=== PATIENT | male | born 2000 | race Caucasian/White ===

== ENCOUNTER → 2018-06-08 16:40 | Outpatient (CLI) | payer OTHER, MEDICAID, SELFPAY ==
[2018-06-08 17:44] LABS: Add Manual Diff / Slide Review NO; Eosinophils Percent Auto 2.7 % (2-4); Hematocrit 48.2 % (41-53); Hemoglobin 16.5 g/dL (13.5-17.5); Lymphocytes Percent Auto 29.4 % (25-40); Mean Corpuscular HGB Conc 34.2 % (30-36); Mean Corpuscular Hemoglobin 31.5 PG (26-34); Mean Corpuscular Volume 92.2 fL (80-100); Monocytes Percent Auto 8.9 % (3-14); Neutrophils Absolute Auto 4800 /uL (3000-5900); Platelet Count 289 X10^3/uL (150-400); Red Blood Cell Count 5.23 X10^6/uL (4.5-5.9); Red Cell Distribution Width 13.3 % (11.6-14.8); White Blood Cell Count 8.3 X10^3/uL (4.5-11.0)
[2018-06-08 18:40] LABS: Alanine Aminotransferase 35 IU/L (21-72); Albumin 4.6 g/dL (3.5-5.0); Albumin Globulin Ratio 1.5 (1.0-2.8); Alkaline Phosphatase 61 U/L (38-126); Aspartate Aminotransferase 26 IU/L (17-59); BUN Creatinine Ratio 16.7 (6-22); Bilirubin Total 0.5 mg/dL (0.2-1.3); Blood Urea Nitrogen 10 mg/dL (9-20); Calcium 9.7 mg/dL (8.4-10.2); Carbon Dioxide 25 mmol/L (22-32); Chloride 102 mmol/L (98-107); Estimated Glomerular Filt Rate > 60.0 mL/min (>60); Globulin 3.1 g/dL (1.7-4.1); Glucose 84 mg/dL (70-100); HEMOLYSIS 16 (0-50); Potassium 4.6 mmol/L (3.4-5.1); Sodium 141 mmol/L (137-145); Total Protein 7.7 g/dL (6.3-8.2)
[2018-06-08 19:10] LABS: TSH w/ Reflex to FT4 1.45 uIU/mL (0.47-4.68)
== END ==
PROVIDERS: PCP Family Medicine; Visit Provider Family Medicine
DX: L65.9 Nonscarring hair loss, unspecified (principal)
CPT/HCPCS: 36415; 80053; 84443; 85025

== ENCOUNTER 2018-08-26 06:51 | Emergency (ER) | payer OTHER, MEDICAID, SELFPAY ==
[2018-08-26 06:58] VITALS: BP 158/93; PULSE 106; RESP 16; TEMP 36.2; O2SAT 98; BMI 21.1
[2018-08-26 07:00] VITALS: BP 133/82; PULSE 99; RESP 12; O2SAT 98
--- NOTE | 2018-08-26 07:05 | ED_ITS ---
HPI - Chest Pain General Chief Complaint: Chest Pain Stated Complaint: sob chest pain Time Seen by Provider: 08/26/18 07:00 Source: patient Mode of arrival: ambulatory Limitations: no limitations History of Present Illness HPI narrative: Otherwise healthy 18-year-old male here for evaluation of chest pain. Patient states that it started approximately 11 o'clock last night and has continued since then. He states that he has had constant pain. States the center of his chest. Not worse with palpation or movement or deep breaths. He has never had anything like this before. Has not tried anything prior to this. He states that he was at a concert last night where there was a lot of smoke and he did smoke which he normally does not do. States that he did have a 2 [address] ride yesterday to the concert. No history of blood clots. No lower extremity swelling. Related Data Previous Rx's Medication Instructions Recorded finasteride 1 mg tablet 1 mg PO DAILY #30 tab 03/09/18 mupirocin 2 % topical ointment 1 applictn TOP TID #22 gram 03/09/18 Allergies Allergy/AdvReac Type Severity Reaction Status Date / Time amoxicillin [From Augmentin] AdvReac Mild UPSET Verified 06/08/18 16:07 STOMACH clavulanic acid AdvReac Mild UPSET Verified 06/08/18 16:07 [From Augmentin] STOMACH Review of Systems Constitutional Denies fatigue, Denies fever(s) and Denies headache(s) ENT Ears, Nose, Mouth, and Throat: Denies headache(s) Cardiovascular Reports chest pain, Denies rapid heart rate, Denies edema, Denies palpitations and Denies dyspnea Respiratory Reports cough and Denies dyspnea Gastrointestinal Gastrointestinal: Denies abdominal pain, Denies nausea and Denies vomiting Integumentary/Breasts Denies lesions and Denies rash Neurologic Denies headache(s) Endocrine Denies fatigue and Denies palpitations Hematologic/Lymphatic Denies easy bleeding and Denies easy bruising [facility] Medical History Anxiety (Chronic 2010) Recurrent sinusitis (Chronic Unknown) Fecal incontinence (Resolved 2014) History of hand fracture (Resolved 09/2015) Surgical History History of tonsillectomy (2013) Family History Father Age: 52 GERD (gastroesophageal reflux disease) Sister Age: 18 Epilepsy Mother Cancer ADHD (attention deficit hyperactivity disorder) Social History Smoking Status: Current every day smoker Exam Initial Vital Signs Initial Vital Signs: Vital Signs Temperature 97.2 F L 08/26/18 06:58 Pulse Rate 106 H 08/26/18 06:58 Respiratory Rate 16 08/26/18 06:58 Blood Pressure 158/93 H 08/26/18 06:58 Pulse Oximetry 98 08/26/18 06:58 Const General: cooperative, healthy appearing, comfortable, well developed and well groomed Orientation: alert, awake and oriented x3 HENMT Head: normal to inspection and normocephalic Resp Effort & Inspection: normal respiratory effort Auscultation: clear to auscultation bilaterally Cardio Rate: regular rate Rhythm: regular rhythm Heart Sounds: no murmurs Pulses: radial pulses present GI Inspection: non-distended Palpation: soft, No firm and No tender Skin Lesions: no lesions Rashes: no rashes Neuro General: alert, awake and oriented x3 Extrem General: normal to inspection and capillary refill normal Psych Appearance: grossly normal and well kempt Course Orders Ordered: ED Orders 08/26/18 06:57 EKG-12 Lead Stat 08/26/18 07:00 Complete Blood Count AUTO DIFF Stat Comprehensive Metabolic Panel Stat D Dimer Stat Lipase Stat 08/26/18 07:14 XR chest 1V Stat 08/26/18 07:20 Troponin I Stat Vital Signs - 8 hr 08/26/18 06:58 08/26/18 08:00 Temperature 97.2 F L Pulse Rate 106 H 94 H Respiratory Rate 16 14 Blood Pressure 158/93 H Blood Pressure [Left Arm] 135/87 Pulse Oximetry 98 96 MDM - Chest Pain Lab Data Attestation: I reviewed the patient's lab results. Result diagrams: 08/26/18 07:00 08/26/18 07:00 Lab Results 08/26/18 08/26/18 08/26/18 Range/Units 07:00 07:00 07:00 WBC 14.1 H (4.5-11.0) X10^3/uL RBC 5.12 (4.5-5.9) X10^6/uL Hgb 15.9 (13.5-17.5) g/dL Hct 45.5 (41-53) % MCV 88.7 (80-100) fL MCH 31.1 (26-34) PG MCHC 35.0 (30-36) % RDW 13.6 (11.6-14.8) % Plt Count 271 (150-400) X10^3/uL Neut % (Auto) 68.6 (50-75) % Lymph % (Auto) 18.8 L (25-40) % Coleman % (Auto) 10.7 (3-14) % Eos % (Auto) 1.5 L (2-4) % Baso % (Auto) 0.4 (0-2) % Neut # (Auto) 9700 H (5873-9739) /uL D-Dimer < 200 (<230) ng/mL Sodium 142 (137-145) mmol/L Potassium 3.3 L (3.4-5.1) mmol/L Chloride 102 (98-107) mmol/L Carbon Dioxide 25 (22-32) mmol/L BUN 7 L (9-20) mg/dL Creatinine 0.60 L (0.66-1.25) mg/dL Estimated GFR > 60.0 (>60) mL/min BUN/Creatinine Ratio 11.7 (6-22) Glucose 104 H (70-100) mg/dL Calcium 9.7 (8.4-10.2) mg/dL Total Bilirubin 1.1 (0.2-1.3) mg/dL AST 39 (17-59) IU/L ALT 60 (21-72) IU/L Alkaline Phosphatase 80 (38-126) U/L Troponin I (0.01-0.034) ng/mL Total Protein 8.2 (6.3-8.2) g/dL Albumin 4.9 (3.5-5.0) g/dL Globulin 3.3 (1.7-4.1) g/dL Albumin/Globulin Ratio 1.5 (1.0-2.8) Lipase 63 (23-300) U/L 08/26/18 Range/Units 07:20 WBC (4.5-11.0) X10^3/uL RBC (4.5-5.9) X10^6/uL Hgb (13.5-17.5) g/dL Hct (41-53) % MCV (80-100) fL MCH (26-34) PG MCHC (30-36) % RDW (11.6-14.8) % Plt Count (150-400) X10^3/uL Neut % (Auto) (50-75) % Lymph % (Auto) (25-40) % Coleman % (Auto) (3-14) % Eos % (Auto) (2-4) % Baso % (Auto) (0-2) % Neut # (Auto) (5355-1680) /uL D-Dimer (<230) ng/mL Sodium (137-145) mmol/L Potassium (3.4-5.1) mmol/L Chloride (98-107) mmol/L Carbon Dioxide (22-32) mmol/L BUN (9-20) mg/dL Creatinine (0.66-1.25) mg/dL Estimated GFR (>60) mL/min BUN/Creatinine Ratio (6-22) Glucose (70-100) mg/dL Calcium (8.4-10.2) mg/dL Total Bilirubin (0.2-1.3) mg/dL AST (17-59) IU/L ALT (21-72) IU/L Alkaline Phosphatase (38-126) U/L Troponin I < 0.012 (0.01-0.034) ng/mL Total Protein (6.3-8.2) g/dL Albumin (3.5-5.0) g/dL Globulin (1.7-4.1) g/dL Albumin/Globulin Ratio (1.0-2.8) Lipase (23-300) U/L Imaging Data Chest x-ray: Attestation: I personally reviewed and interpreted this imaging study as follows: My impression: No focal consolidations No pneumothorax Normal size heart Radiologist's impression: PROCEDURE: XR CHEST 1V INDICATIONS: chest pain TECHNIQUE: One view of the chest was acquired. COMPARISON: None. FINDINGS: Surgical changes and devices: None. Lungs and pleura: No pleural effusions or pneumothorax. Lungs are clear. Mediastinum: Mediastinal contours appear normal. Heart size is normal. Bones and chest wall: No suspicious bony lesions. Overlying soft tissues appear unremarkable. IMPRESSION: No acute pulmonary process. Dictated by: Lexi Perez, M.D. on 08/26/2018 at 7:59 Approved by: Lexi Perez M.D. on 08/26/2018 at 8:00 ECG Data Attestation: I personally reviewed and interpreted this ECG as follows: Prior ECG tracings: not available for review Interpretation: Sinus rhythm Ventricular rate of 1 0 weight Normal axis Normal QRS Normal QTC Early repolarization MDM Narrative Medical decision making narrative: Early refill in the EKG. D-dimer is negative. Chest x-ray shows no signs of infection. Does have an elevated white blood cell count however no signs of infection were found on the workup today. I suspect that his symptoms are secondary to his smoke exposure over the past 24 hr at the concert. He was feeling much better while being here in the ER. We also discussed that this could potentially be a GI etiology. He is going to start on Zantac for the next several days. He was given return precautions. Both he and his mother was at bedside expressed understanding and agreement with plan. Discharge Plan Departure Patient Disposition: Home Clinical Impression: Chest pain Instructions: DI for Atypical Chest Pain Activity Restrictions/Additional Instructions: I would recommend that you start on a anti reflux medications such as Zantac for the next couple days. Call your primary care doctor for a follow-up. I highly encouraged you to stop smoking as I suspect that the symptoms you had today are related to that. Return to the emergency department for any new or worsening symptoms Prescriptions: No Action mupirocin 2 % ointment 1 applictn TOP TID Qty: 22 RF: 0 finasteride 1 mg tablet 1 mg PO DAILY Qty: 30 RF: 2
--- NOTE | 2018-08-26 07:14 | DI.RAD.S_ITS ---
PROCEDURE: XR CHEST 1V INDICATIONS: chest pain TECHNIQUE: One view of the chest was acquired. COMPARISON: None. FINDINGS: Surgical changes and devices: None. Lungs and pleura: No pleural effusions or pneumothorax. Lungs are clear. Mediastinum: Mediastinal contours appear normal. Heart size is normal. Bones and chest wall: No suspicious bony lesions. Overlying soft tissues appear unremarkable. IMPRESSION: No acute pulmonary process. Dictated by: Lexi Perez M.D. on 08/26/2018 at 7:59 Approved by: Lexi Perez M.D. on 08/26/2018 at 8:00
[2018-08-26 07:22] LABS: Add Manual Diff / Slide Review NO; Basophils Percent Auto 0.4 % (0-2); Eosinophils Percent Auto 1.5 % (2-4); Hematocrit 45.5 % (41-53); Hemoglobin 15.9 g/dL (13.5-17.5); Lymphocytes Percent Auto 18.8 % (25-40); Mean Corpuscular Hemoglobin 31.1 PG (26-34); Mean Corpuscular Volume 88.7 fL (80-100); Monocytes Percent Auto 10.7 % (3-14); Neutrophils Absolute Auto 9700 /uL (3000-5900); Neutrophils Percent Auto 68.6 % (50-75); Platelet Count 271 X10^3/uL (150-400); Red Blood Cell Count 5.12 X10^6/uL (4.5-5.9); Red Cell Distribution Width 13.6 % (11.6-14.8); White Blood Cell Count 14.1 X10^3/uL (4.5-11.0)
[2018-08-26 07:26] LABS: D Dimer < 200 ng/mL (<230)
[2018-08-26 07:33] LABS: Alanine Aminotransferase 60 IU/L (21-72); Albumin 4.9 g/dL (3.5-5.0); Albumin Globulin Ratio 1.5 (1.0-2.8); Alkaline Phosphatase 80 U/L (38-126); Aspartate Aminotransferase 39 IU/L (17-59); BUN Creatinine Ratio 11.7 (6-22); Bilirubin Total 1.1 mg/dL (0.2-1.3); Blood Urea Nitrogen 7 mg/dL (9-20); Calcium 9.7 mg/dL (8.4-10.2); Carbon Dioxide 25 mmol/L (22-32); Chloride 102 mmol/L (98-107); Estimated Glomerular Filt Rate > 60.0 mL/min (>60); Globulin 3.3 g/dL (1.7-4.1); Glucose 104 mg/dL (70-100); HEMOLYSIS 21 (0-50); Lipase 63 U/L (23-300); Potassium 3.3 mmol/L (3.4-5.1); Sodium 142 mmol/L (137-145); Total Protein 8.2 g/dL (6.3-8.2)
[2018-08-26 07:49] LABS: Troponin I < 0.012 ng/mL (0.01-0.034)
[2018-08-26 08:00] VITALS: BP 135/87; PULSE 94; RESP 14; O2SAT 96
--- NOTE | 2018-08-26 08:01 | PC.NURSE ---
pt reports, going to concert last night, developed substernal chest discomfort for 6 hours, with shortness of breath and denies nausea or vomiting, also with shoulder pain. had a cold for 2 days, also smoker, reports coughing green sputum, denies fever at home. mother at bs. waiting for pending labs.
== END 2018-08-26 08:54 | disposition home or self-care (01) ==
PROVIDERS: Emergency Provider Emergency Medicine; PCP Family Medicine
DX: R07.89 Other chest pain (principal)
CPT/HCPCS: 71045; 80053; 83690; 84484; 85025; 85379; 93005; 93010; 99283; 99285

== ENCOUNTER 2018-08-27 11:03 | Emergency (ER) | payer OTHER, MEDICAID, SELFPAY ==
--- NOTE | 2018-08-27 11:05 | ED_ITS ---
HPI - Chest Pain General Chief Complaint: Chest Pain Stated Complaint: CHEST PAINS Time Seen by Provider: 08/27/18 11:04 Source: patient Mode of arrival: ambulatory Limitations: no limitations History of Present Illness HPI narrative: Patient is a 18-year-old male who I evaluated the emergency department yesterday for chest pain. Patient did have an elevated white blood cell count at that time but other signs of infection. His EKG was unremarkable. Troponin was unremarkable. D-dimer was negative. I felt at that time that his chest pain was secondary to the smoke exposure that he had had over the past 24 hr while at a concert. Patient states he was discharged home and felt much better throughout the day. He states that last evening the chest pain came back and then got worse this morning and it is now in his back. He states that it is the worst upper back pain that he has ever had. No fevers. Has not passed out. No headache. No vision changes. He states that he still has the pain in the front portion of his chest that he had yesterday and that is the same pain. Related Data Previous Rx's Medication Instructions Recorded finasteride 1 mg tablet 1 mg PO DAILY #30 tab 03/09/18 mupirocin 2 % topical ointment 1 applictn TOP TID #22 gram 03/09/18 Allergies Allergy/AdvReac Type Severity Reaction Status Date / Time amoxicillin [From Augmentin] AdvReac Mild UPSET Verified 08/27/18 11:45 STOMACH clavulanic acid AdvReac Mild UPSET Verified 08/27/18 11:45 [From Augmentin] STOMACH Review of Systems Constitutional Denies fever(s) and Denies headache(s) ENT Ears, Nose, Mouth, and Throat: Denies dizziness and Denies headache(s) Cardiovascular Reports chest pain, Denies diaphoresis, Denies syncope, Denies edema and Denies dyspnea Respiratory Denies cough and Denies dyspnea Gastrointestinal Gastrointestinal: Denies abdominal pain, Denies nausea and Denies vomiting Musculoskeletal Reports back pain (Upper back pain), Denies myalgias and Denies arthralgias Integumentary/Breasts Denies lesions and Denies rash Neurologic Denies dizziness, Denies syncope and Denies headache(s) Hematologic/Lymphatic Denies easy bleeding and Denies easy bruising [facility] Medical History Anxiety (Chronic 2010) Recurrent sinusitis (Chronic Unknown) Fecal incontinence (Resolved 2014) History of hand fracture (Resolved 09/2015) Surgical History History of tonsillectomy (2013) Family History Father Age: 52 GERD (gastroesophageal reflux disease) Sister Age: 18 Epilepsy Mother Cancer ADHD (attention deficit hyperactivity disorder) Social History Smoking Status: Current every day smoker Exam Initial Vital Signs Initial Vital Signs: Vital Signs Temperature 97.7 F 08/27/18 11:12 Pulse Rate 84 08/27/18 11:12 Respiratory Rate 15 08/27/18 11:12 Blood Pressure 138/86 08/27/18 11:12 Pulse Oximetry 100 08/27/18 11:12 Const General: well developed, well groomed, in distress, No diaphoretic and ill appearing Orientation: alert, awake and oriented x3 HENMT Head: normal to inspection and normocephalic Chest Chest: normal inspection of the chest, normal palpation of entire chest wall and No crepitus Resp Effort & Inspection: normal respiratory effort Auscultation: clear to auscultation bilaterally Cardio Rate: regular rate Rhythm: regular rhythm Heart Sounds: no murmurs Pulses: radial pulses present GI Inspection: normal to inspection and non-distended Back/Spine/Pelvis Back: No CVA tenderness Skin Lesions: no lesions Rashes: no rashes Neuro General: alert, awake and oriented x3 Extrem General: normal to inspection and No edema Psych Appearance: grossly normal and well kempt Course Orders Ordered: ED Orders 08/27/18 11:06 EKG-12 Lead Stat 08/27/18 11:18 CT angio chest abdomen pelvis Stat 08/27/18 11:25 B Type Natriuretic Peptide Stat Complete Blood Count AUTO DIFF Stat Troponin I Stat Sodium Chloride (Normal Saline 0.9%) 1,000 mls @ 1,000 mls/hr IV BOLUS ONE Stop: 08/27/18 12:06 Discontinued Medications Al Hydrox/Mg Hydrox/Simethicone 20 ml/ Lidocaine HCl 15 ml 0 ml PO NOW ONE Stop: 08/27/18 11:13 Vital Signs - 8 hr 08/27/18 11:12 Temperature 97.7 F Pulse Rate 84 Respiratory Rate 15 Blood Pressure 138/86 Pulse Oximetry 100 MDM - Chest Pain Lab Data Result diagrams: 08/27/18 11:25 Lab Results 08/27/18 Range/Units 11:25 WBC 10.7 (4.5-11.0) X10^3/uL RBC 4.86 (4.5-5.9) X10^6/uL Hgb 15.1 (13.5-17.5) g/dL Hct 43.4 (41-53) % MCV 89.3 (80-100) fL MCH 31.1 (26-34) PG MCHC 34.8 (30-36) % RDW 13.5 (11.6-14.8) % Plt Count 251 (150-400) X10^3/uL Neut % (Auto) 60.2 (50-75) % Lymph % (Auto) 25.2 (25-40) % Saline % (Auto) 11.5 (3-14) % Eos % (Auto) 2.6 (2-4) % Baso % (Auto) 0.5 (0-2) % Neut # (Auto) 6500 H (7858-0973) /uL Imaging Data CT scan dissection : Radiologist's impression: [place] [address] CT Scan Report Signed Patient: Oral Eid RMR#: [id number] : 2000Acct:[id number] Age/Sex: 18 / MDate of Service: 08/27/18 Loc: ED Accession Number: [id number] Procedure: CT angio chest abdomen pelvis Ordering Provider: Vincenzo Perez D.O. PROCEDURE: CT ANGIO CHEST ABDOMEN PELVIS INDICATIONS: TAD TECHNIQUE: Precontrast 5 mm thick sections acquired from the lung apices to the iliac crests. After the administration of intravenous contrast, 2.5 mm thick sections again acquired from the lung apices to the iliac crests. Maximum intensity projection (MIP) oblique sagittal and coronal reformats were then acquired. For radiation dose reduction, the following was used: automated exposure control. COMPARISON: None. FINDINGS: Image quality: Excellent. AORTA: The aorta demonstrates normal course and caliber throughout. No mural thrombus. No atheromatous plaque or calcifications. No aneurysmal dilatation. No stenosis. No annuloaortic ectasia. CHEST: Lungs and pleura: No acute airspace opacities. No pleural effusions or pneumothorax. Central and peripheral airways are patent and normal in caliber. Mediastinum: Heart size is normal. No pericardial effusion. No mediastinal or hilar adenopathy by size criteria. Central pulmonary arteries are normal in size. Esophagus is normal in caliber. No hiatal hernias. Bones and chest wall: No axillary adenopathy by size criteria. Thyroid gland is unremarkable. No suspicious bony lesions. No vertebral body compression fractures. ABDOMEN: Vasculature: Celiac trunk and mesenteric arteries are patent. Renal arteries are also patent. Solid organs: Liver is is diffusely hypodense suggesting fatty infiltration. Gallbladder is unremarkable. Biliary system is non dilated. Pancreas enhances normally. Spleen is normal in size and enhancement. No adrenal nodules. Both kidneys are normal in size and enhancement, without hydronephrosis. Peritoneum and bowel: No free fluid or air. Bowel loops are normal in caliber and wall thickness. The appendix is thin walled and gas filled. Nodes and vessels: No retroperitoneal or mesenteric adenopathy by size criteria. Inferior vena cava is normal in morphology. Miscellaneous: No ventral hernias. PELVIS: Genitourinary: Bladder wall thickness is normal. Miscellaneous: No inguinal hernias or adenopathy. No ventral hernias. Bones: No suspicious bony lesions. No vertebral body compression fractures. IMPRESSION: 1. Normal appearance of the thoracoabdominal aorta. 2. No findings to explain patient's symptoms. 3. Normal appendix. Dictated by: Sonia Salas M.D. on 08/27/2018 at 11:43 Approved by: Sonia Salas M.D. on 08/27/2018 at 11:47 ECG Data Attestation: I personally reviewed and interpreted this ECG as follows: Prior ECG tracings: available for review Interpretation: Sinus rhythm Ventricular rate of 91 ST elevations in lead 2-3 AVF V4 V5 V6. Normal QRS Normal QTC Comparison EKG dated 08/26/[address] elevations in 2 3 AVF V4 V5 V6 on this EKG MDM Narrative Medical decision making narrative: Patient arrived looking much more uncomfortable today than yesterday. He did report that he did drink last evening however that was 11 hr ago. He states that he took 1 drag off of a cigarette since his visit here yesterday. He denies any drug use currently. He states that he has used cocaine in the past but that was many months ago. The back pain today is new. He states that is the worse back pain that he has ever had. He has changes in his EKG today compared to yesterday. He has ST elevations in 2 3 and AVF and also laterally which were not there yesterday. Yesterday's EKG I read as early repolarization. Patient is not hypotensive. I feel given his symptoms, his clinical presentation, the new ST-T changes that ST elevation OR is a possibility. I discussed the case with Dr. Persaud at [facility] who accepts the patient in transfer. EKGs were faxed over. This could also be pericarditis however I feel that he does not have diffuse ST elevation. The CT scan was negative for dissection. Will transfer the patient to [facility]. He was given an aspirin by the paramedics while he was here in the emergency department. After discussion with the accepting provider will hold on aspirin for now. Transfer was discussed with the family they expressed understanding and agreement. Discharge Plan Departure Patient Disposition: [facility] Clinical Impression: Anxiety, ST elevation Prescriptions: No Action mupirocin 2 % ointment 1 applictn TOP TID Qty: 22 RF: 0 finasteride 1 mg tablet 1 mg PO DAILY Qty: 30 RF: 2 Referrals: Fernando Leung MD [Primary Care Provider] -
[2018-08-27 11:12] VITALS: BP 138/86; PULSE 84; RESP 15; TEMP 36.5; O2SAT 100; BMI 21.1
--- NOTE | 2018-08-27 11:18 | DI.CT.S_ITS ---
PROCEDURE: CT ANGIO CHEST ABDOMEN PELVIS INDICATIONS: TAD TECHNIQUE: Precontrast 5 mm thick sections acquired from the lung apices to the iliac crests. After the administration of intravenous contrast, 2.5 mm thick sections again acquired from the lung apices to the iliac crests. Maximum intensity projection (MIP) oblique sagittal and coronal reformats were then acquired. For radiation dose reduction, the following was used: automated exposure control. COMPARISON: None. FINDINGS: Image quality: Excellent. AORTA: The aorta demonstrates normal course and caliber throughout. No mural thrombus. No atheromatous plaque or calcifications. No aneurysmal dilatation. No stenosis. No annuloaortic ectasia. CHEST: Lungs and pleura: No acute airspace opacities. No pleural effusions or pneumothorax. Central and peripheral airways are patent and normal in caliber. Mediastinum: Heart size is normal. No pericardial effusion. No mediastinal or hilar adenopathy by size criteria. Central pulmonary arteries are normal in size. Esophagus is normal in caliber. No hiatal hernias. Bones and chest wall: No axillary adenopathy by size criteria. Thyroid gland is unremarkable. No suspicious bony lesions. No vertebral body compression fractures. ABDOMEN: Vasculature: Celiac trunk and mesenteric arteries are patent. Renal arteries are also patent. Solid organs: Liver is is diffusely hypodense suggesting fatty infiltration. Gallbladder is unremarkable. Biliary system is non dilated. Pancreas enhances normally. Spleen is normal in size and enhancement. No adrenal nodules. Both kidneys are normal in size and enhancement, without hydronephrosis. Peritoneum and bowel: No free fluid or air. Bowel loops are normal in caliber and wall thickness. The appendix is thin walled and gas filled. Nodes and vessels: No retroperitoneal or mesenteric adenopathy by size criteria. Inferior vena cava is normal in morphology. Miscellaneous: No ventral hernias. PELVIS: Genitourinary: Bladder wall thickness is normal. Miscellaneous: No inguinal hernias or adenopathy. No ventral hernias. Bones: No suspicious bony lesions. No vertebral body compression fractures. IMPRESSION: 1. Normal appearance of the thoracoabdominal aorta. 2. No findings to explain patient's symptoms. 3. Normal appendix. Dictated by: Sonia Salas M.D. on 08/27/2018 at 11:43 Approved by: Sonia Salas M.D. on 08/27/2018 at 11:47
[2018-08-27 11:38] LABS: Add Manual Diff / Slide Review NO; Basophils Percent Auto 0.5 % (0-2); Eosinophils Percent Auto 2.6 % (2-4); Hematocrit 43.4 % (41-53); Hemoglobin 15.1 g/dL (13.5-17.5); Lymphocytes Percent Auto 25.2 % (25-40); Mean Corpuscular HGB Conc 34.8 % (30-36); Mean Corpuscular Hemoglobin 31.1 PG (26-34); Mean Corpuscular Volume 89.3 fL (80-100); Monocytes Percent Auto 11.5 % (3-14); Neutrophils Absolute Auto 6500 /uL (3000-5900); Neutrophils Percent Auto 60.2 % (50-75); Platelet Count 251 X10^3/uL (150-400); Red Blood Cell Count 4.86 X10^6/uL (4.5-5.9); Red Cell Distribution Width 13.5 % (11.6-14.8); White Blood Cell Count 10.7 X10^3/uL (4.5-11.0)
[2018-08-27 11:55] VITALS: BP 122/86; PULSE 86; RESP 21; O2SAT 100
[2018-08-27] MEDS: SODIUM CHLORIDE 0.9% 1,000 ML 1000 ML IV (11:55)
--- NOTE | 2018-08-27 12:03 | PC.NURSE ---
fluid continued by medics upon transfer
== END 2018-08-27 11:55 | disposition short-term general hospital (02) ==
PROVIDERS: Emergency Provider Emergency Medicine; PCP Family Medicine
DX: F41.9 Anxiety disorder, unspecified (principal); R94.31 Abnormal electrocardiogram [ECG] [EKG]; R07.89 Other chest pain
CPT/HCPCS: 36591; 71275; 74174; 83880; 84484; 85025; 93005; 93010; 99283; 99291

== ENCOUNTER → 2019-01-17 08:27 | Outpatient (CLI) | payer OTHER, MEDICAID, SELFPAY ==
--- NOTE | 2019-01-17 09:26 | PM.TREADMILL ---
Cardiac Stress Test Report Referral & Results Date Patient Seen: 01/17/19 Requesting provider: Ailyn Anthony Indication: Chest pain Rest ECG: Unremarkable Procedure Note: Today following both written and verbal informed consent, the patient was exercised according to a standard Jason protocol. The patient exercised for a total of 9 min 18 sec achieving a maximum heart rate of 191. Patient's maximum systolic blood pressure was 178. This was an estimated 10.1 MET's. There are no ST-T segment changes Normal heart rate and blood pressure response to exercise Functional aerobic impairment rated about 28% on the sedentary scale Impression: No evidence of ischemia Somewhat limited exercise capacity Clinical correlation suggested Please note: Actual ECG tracings can be found in the PACS system.
== END ==
PROVIDERS: PCP Family Medicine; Visit Provider Family Medicine
DX: R07.9 Chest pain, unspecified (principal)
CPT/HCPCS: 93016; 93017; 93018

== ENCOUNTER → 2020-08-29 13:57 | Outpatient (CLI) | payer OTHER, MEDICAID, SELFPAY ==
[2020-08-30 19:21] LABS: COVID19 Sendout Not Detected (Not Detect)
== END ==
PROVIDERS: PCP Family Medicine; Visit Provider Physician Assistant
DX: Z11.59 Encounter for screening for other viral diseases (principal); J02.9 Acute pharyngitis, unspecified
CPT/HCPCS: 87070; 87077; 87147; 87635

== ENCOUNTER → 2020-11-22 11:57 | Outpatient (CLI) | payer OTHER, MEDICAID, SELFPAY ==
--- NOTE | 2020-11-22 11:59 | DI.RAD.S_ITS ---
PROCEDURE: XR HAND LT MIN 3V INDICATIONS: fall, pain to wrist/elbow/forearm TECHNIQUE: 3 views of the hand(s) acquired. COMPARISON: [facility], CR, XR WRIST LT MIN 3V, 11/22/2020, 12:01. [facility], CR, XR FOREARM LT 2V, 11/22/2020, 12:01. [facility], CR, XR HUMERUS LT 2V, 11/22/2020, 12:01. [facility], CR, XR ELBOW LT MIN 3V, 11/22/2020, 12:01. [facility], CR, HAND 3V RIGHT, 10/06/2015, 17:41. FINDINGS: Bones: No fractures or dislocations. Carpal bones are normally aligned. No suspicious bony lesions. Soft tissues: No suspicious soft tissue calcifications. IMPRESSION: No displaced fractures can be seen. Dictated by: Montrell Turner M.D. on 11/22/2020 at 11:47 Approved by: Montrell Turner M.D. on 11/22/2020 at 11:49
--- NOTE | 2020-11-22 11:59 | DI.RAD.S_ITS ---
PROCEDURE: XR WRIST LT MIN 3V INDICATIONS: fall, pain to wrist/elbow/forearm TECHNIQUE: 4 views of the wrist were acquired. COMPARISON: [facility], CR, XR HAND LT MIN 3V, 11/22/2020, 12:01. [facility], CR, XR FOREARM LT 2V, 11/22/2020, 12:01. [facility], CR, XR HUMERUS LT 2V, 11/22/2020, 12:01. [facility], CR, XR ELBOW LT MIN 3V, 11/22/2020, 12:01. FINDINGS: Bones: No fractures or dislocations. No suspicious bony lesions. Scaphoid view: No navicular fractures are seen. Soft tissues: No suspicious soft tissue calcifications. IMPRESSION: No displaced fractures are seen. If there is snuffbox tenderness (or other clinical suspicion for a fracture not seen on these images) then a repeat examination would be recommended in 10 to 14 days, following splinting. Dictated by: Montrell Turner M.D. on 11/22/2020 at 11:45 Approved by: Montrell Turner M.D. on 11/22/2020 at 11:46
--- NOTE | 2020-11-22 11:59 | DI.RAD.S_ITS ---
PROCEDURE: XR HUMERUS LT 2V INDICATIONS: fall, pain to wrist/elbow/forearm TECHNIQUE: 2 views of the humerus were acquired. COMPARISON: [facility], CR, XR FOREARM LT 2V, 11/22/2020, 12:01. [facility], CR, XR WRIST LT MIN 3V, 11/22/2020, 12:01. [facility], CR, XR HAND LT MIN 3V, 11/22/2020, 12:01. [facility], CR, XR ELBOW LT MIN 3V, 11/22/2020, 12:01. FINDINGS: Bones: No fractures or dislocations. No suspicious bony lesions. Soft tissues: No suspicious soft tissue calcifications. IMPRESSION: No displaced fractures are seen. If there is point tenderness (or other clinical suspicion for a fracture not seen on these images) please consider a dedicated CT for further evaluation. Dictated by: Montrell Turner M.D. on 11/22/2020 at 11:46 Approved by: Montrell Turner M.D. on 11/22/2020 at 11:47
--- NOTE | 2020-11-22 11:59 | DI.RAD.S_ITS ---
PROCEDURE: XR FOREARM RT 2V INDICATIONS: fall, pain to wrist/elbow/forearm TECHNIQUE: 2 views of the forearm were acquired. COMPARISON: [facility], CR, XR HAND LT MIN 3V, 11/22/2020, 12:01. [facility], CR, XR WRIST LT MIN 3V, 11/22/2020, 12:01. [facility], CR, XR HUMERUS LT 2V, 11/22/2020, 12:01. [facility], CR, XR ELBOW LT MIN 3V, 11/22/2020, 12:01. FINDINGS: Bones: No fractures or dislocations. No suspicious bony lesions. Soft tissues: No suspicious soft tissue calcifications or masses. IMPRESSION: Negative for displaced fracture. Dictated by: Montrell Turner M.D. on 11/22/2020 at 11:49 Approved by: Montrell Turner M.D. on 11/22/2020 at 11:50
--- NOTE | 2020-11-22 11:59 | DI.RAD.S_ITS ---
PROCEDURE: XR ELBOW LT MIN 3V INDICATIONS: fall, pain to wrist/elbow/forearm TECHNIQUE: 3 views of the elbow were acquired. COMPARISON: [facility], CR, XR WRIST LT MIN 3V, 11/22/2020, 12:01. [facility], CR, XR FOREARM LT 2V, 11/22/2020, 12:01. [facility], CR, XR HUMERUS LT 2V, 11/22/2020, 12:01. [facility], CR, XR HAND LT MIN 3V, 11/22/2020, 12:01. FINDINGS: Bones: There is a potential radial head fracture seen on 1 image. No additional fractures can be seen. Soft tissues: There is a small joint effusion. IMPRESSION: Potential radial head fracture seen on 1 image. Please correlate with focal tenderness. If it would be helpful for clinical management decision making, please consider a dedicated elbow CT for further evaluation. Dictated by: Montrell Turner M.D. on 11/22/2020 at 11:50 Approved by: Montrell Turner M.D. on 11/22/2020 at 11:51
== END ==
PROVIDERS: PCP Family Medicine; Referring Provider Physician Assistant; Visit Provider Physician Assistant
DX: S59.912A Unspecified injury of left forearm, initial encounter (principal); M25.422 Effusion, left elbow; M79.632 Pain in left forearm; M25.532 Pain in left wrist; M25.522 Pain in left elbow; W19.XXXA Unspecified fall, initial encounter
CPT/HCPCS: 73060; 73080; 73090; 73110; 73130

== ENCOUNTER → 2023-03-15 14:06 | Outpatient (CLI) | payer OTHER, MEDICAID, SELFPAY ==
[2023-03-15 15:04] LABS: Add Manual Diff / Slide Review NO; Basophils Absolute Auto 100 /uL (0-100); Basophils Percent Auto 0.9 % (0-2); Eosinophils Absolute Auto 500 /uL (0-450); Eosinophils Percent Auto 6.2 % (2-4); Hematocrit 46.4 % (41-53); Hemoglobin 15.8 g/dL (13.5-17.5); Lymphocytes Absolute Auto 2500 /uL (1100-4500); Lymphocytes Percent Auto 34.6 % (25-40); Mean Corpuscular HGB Conc 34.1 % (30-36); Mean Corpuscular Hemoglobin 30.4 PG (26-34); Mean Corpuscular Volume 89.1 fL (80-100); Monocytes Absolute Auto 700 /uL (0-900); Monocytes Percent Auto 9.1 % (3-14); Neutrophils Absolute Auto 3600 /uL (1500-7000); Neutrophils Percent Auto 49.2 % (50-75); Platelet Count 301 X10^3/uL (150-400); Red Blood Cell Count 5.21 X10^6/uL (4.5-5.9); Red Cell Distribution Width 14.4 % (11.6-14.8); White Blood Cell Count 7.3 X10^3/uL (4.5-11.0)
[2023-03-15 15:21] LABS: Alanine Aminotransferase 85 IU/L (<50); Albumin 4.4 g/dL (3.5-5.0); Albumin Globulin Ratio 1.4 (1.0-2.8); Alkaline Phosphatase 64 U/L (38-126); Aspartate Aminotransferase 39 IU/L (17-59); BUN Creatinine Ratio 16.1 (6-22); Bilirubin Total 1.1 mg/dL (0.2-1.3); Blood Urea Nitrogen 9 mg/dL (9-20); Calcium 8.9 mg/dL (8.4-10.2); Carbon Dioxide 21 mmol/L (22-32); Chloride 106 mmol/L (98-107); Cholesterol 149 mg/dL (140-199); Estimated Glomerular Filt Rate > 60 mL/min (>60); Globulin 3.1 g/dL (1.7-4.1); Glucose 92 mg/dL (70-100); HDL Cholesterol 49 mg/dL (40-60); HEMOLYSIS < 15 (0-50); LDL Cholesterol Calculated 78 mg/dL (<100); Potassium 4.1 mmol/L (3.4-5.1); Sodium 138 mmol/L (137-145); Total Protein 7.5 g/dL (6.3-8.2); Triglycerides 109 mg/dL (35-150)
[2023-03-15 16:07] LABS: Vitamin B12 283 pg/mL (239-931)
== END ==
PROVIDERS: PCP Family Medicine; Referring Provider Family Medicine; Visit Provider Family Medicine
DX: F10.90 Alcohol use, unspecified, uncomplicated (principal); F41.8 Other specified anxiety disorders; R03.0 Elevated blood-pressure reading, without diagnosis of hypertension
CPT/HCPCS: 36415; 80053; 80061; 82607; 85025